=== PATIENT | male | born 1960 | race Caucasian/White ===

== ENCOUNTER 2018-11-06 10:20 | Emergency (ER) | payer BC ==
[~2018-11-06] VITALS: Ht 193 cm; Wt 102.3 kg
[~2018-11-06 10:20] MED LIST: AMLODIPINE BESY10 MG PO; DIABETA5 M1 PO; FORTAMET1000 M1 PO; LISINOPRIL40 MG PO
[2018-11-06 10:56] LABS: HEMATOCRIT 47.2 % (42.0-52.0); HEMOGLOBIN 16.3 g/dL (13.5-18.0); MEAN CELL VOLUME 80 fl (78-100); MEAN CORPUSCULAR HEMOGLOBIN 28 pg (27-31); MEAN CORPUSCULAR HGB CONC 35 g/dL (33-37); MEAN PLATELET VOLUME 10.2 fl (7.4-10.4); PLATELET COUNT 275 K/mm3 (130-400); RED BLOOD COUNT 5.89 M/mm3 (4.20-5.60); RED CELL DISTRIBUTION WIDTH 13.5 % (11.5-14.5)
[2018-11-06 11:09] LABS: LYMPHOCYTE 16 % (20-51); MONOCYTE 3 % (3-10); NEUTROPHILS 81 % (42-75)
[2018-11-06 11:11] LABS: ALBUMIN 4.7 g/dL (3.5-5.0); CALCIUM 11.3 mg/dL (8.4-10.2); POTASSIUM 3.4 mmol/L (3.6-5.0); TOTAL BILIRUBIN 1.2 mg/dL (0.2-1.3); TOTAL PROTEIN 7.9 g/dL (6.3-8.2)
[2018-11-06 13:11] LABS: URINE APPEARANCE CLOUDY; URINE BILIRUBIN NEGATIVE (NEGATIVE); URINE BLOOD 50 ery/uL (NEGATIVE); URINE COLOR YELLOW; URINE KETONE 3+ (NEGATIVE); URINE LEUKOCYTE ESTERASE NEGATIVE (NEGATIVE); URINE MUCUS PRESENT (NOT PRESENT); URINE NITRATE NEGATIVE (NEGATIVE); URINE PROTEIN(semi-quant) 1+ mg/dL (NEGATIVE); URINE UROBILINOGEN NORMAL (NORMAL)
[2018-11-06] MEDS ORDERED: ZOFRAN4 M2 PO ×3 (13:36→13:39)
[2018-11-06] MEDS ORDERED: PHENERGAN 25 TA25 MG PO ×3 (13:36→13:39)
[2018-11-06 13:59] VITALS: BP 163/91
== END 2018-11-06 13:43 | disposition home or self-care (01) ==
LOC: ED 10:20
PROVIDERS: Nurse Practitioner Primary Care
DX: E86.0 Dehydration (principal); I10 Essential (primary) hypertension; E11.8 Type 2 diabetes mellitus with unspecified complications; Z79.84 Long term (current) use of oral hypoglycemic drugs; Z88.0 Allergy status to penicillin; Z86.718 Personal history of other venous thrombosis and embolism; Z89.511 Acquired absence of right leg below knee
CPT/HCPCS: J2270; J2405; J2550; J7030; J7120